=== PATIENT | female | born 1945 | race African-American/Black ===

== ENCOUNTER 2017-02-09 11:05 | Emergency (ER) | payer MEDICARE, MEDICAID ==
[~2017-02-09] VITALS: Ht 167.6 cm; Wt 90.0 kg
[~2017-02-09 11:05] MED LIST: ALBU6.7H IH; AMLO10TA4 PO; DIPH25CA83 PO; DIPH25ST8 PO; EZET1TAB6 PO; FAMO20TA96 PO; LEVO500T15 PO; LEVPEN SQ; LORA10CA PO; METR500T PO; P20 PO; [UNRECOGNIZED DRUG - CODE] PO
[2017-02-09] MEDS ORDERED: DIAZEPAM 5 MG TABLET PO ONE (12:00)
[2017-02-09 15:06] LABS: CLARITY URINE CLOUDY (CLEAR); COLOR URINE YELLOW (YELLOW); GLUCOSE URINE 1+ (NEGATIVE); KETONES URINE NEGATIVE (NEGATIVE); LEUKOCYTE ESTERASE URINE 2+ (NEGATIVE); NITRITE URINE NEGATIVE (NEGATIVE); OCCULT BLOOD URINE NEGATIVE (NEGATIVE); PROTEIN URINE NEGATIVE (NEGATIVE); SPECIFIC GRAVITY URINE 1.015 (1.005-1.030)
[2017-02-09 15:16] LABS: SQUAMOUS EPITHELIAL CELL URINE 3+ /lpf (RARE/1+)
[2017-02-09 15:17] LABS: BACTERIA URINE 3+
[2017-02-09 15:18] LABS: RBC URINE NONE SEEN /hpf (0-2); YEAST URINE FEW
[2017-02-09] MEDS ORDERED: KETOROLAC 60MG/2ML VIAL IM ONE (15:45)
[2017-02-09] MEDS ORDERED: HYDROCODONE/ACETAMINOPHEN 5/325MG TABLET PO ONE (16:00)
[2017-02-09 17:22] VITALS: BP 121/67
== END 2017-02-09 17:24 | disposition home or self-care (01) ==
LOC: ER 11:13
DX: N39.0 Urinary tract infection, site not specified (principal); E11.9 Type 2 diabetes mellitus without complications; E78.00 Pure hypercholesterolemia, unspecified; I10 Essential (primary) hypertension; Z88.6 Allergy status to analgesic agent; Z79.4 Long term (current) use of insulin; Z79.899 Other long term (current) drug therapy
CPT/HCPCS: 81001; 99283

== ENCOUNTER → 2023-10-06 | Outpatient (CLI) | payer MEDICARE, MEDICAID ==
[~2023-10-06] MED LIST changes: -ALBU6.7H IH; +ALBU6.7H15 IH; +BARIUM SULFATE 176 GM SUSP.RECON ONE; +EZ-HD SUSPENSION(BARIUM SULFATE 340GM) PO ONE; +FAMO-135 PO; -FAMO20TA96 PO; -LEVO500T15 PO; +LEVO500T2 PO; +LORA-1349 PO; +SIMETHICONE/SOD BICARB/CIT AC 1 EACH GRAN.EF.PK ONE; -[UNRECOGNIZED DRUG - CODE] PO
== END | disposition home or self-care (01) ==
LOC: RAD 11:25
PROVIDERS: ATTEND Internal Medicine Gastroenterology
DX: R13.19 Other dysphagia (principal)
CPT/HCPCS: 74220; J7517